=== PATIENT | male | born 1950 | race Hispanic/Latino ===

== ENCOUNTER 2018-06-05 17:05 | Emergency (ER) | payer MEDICARE ==
--- NOTE | 2018-06-05 18:25 | RAD ---
LEFT FOREARM 2 VIEWS: Date: 06/05/18 HISTORY: left arm injury. FINDINGS: Radius and ulna are intact. No metallic foreign bodies are visible. Degenerative changes of the first carpometacarpal joint. IMPRESSION: No acute osseous abnormalities are demonstrated. POS: [id number]
== END 2018-06-05 20:16 | disposition home or self-care (01) ==
LOC: ERS 17:05
DX: S51.812A Laceration without foreign body of left forearm, initial encounter (principal); E11.9 Type 2 diabetes mellitus without complications; I10 Essential (primary) hypertension; F17.210 Nicotine dependence, cigarettes, uncomplicated; Z71.6 Tobacco abuse counseling; W26.0XXA Contact with knife, initial encounter
CPT/HCPCS: 12002; 99406